=== PATIENT | female | born 1990 | race African-American/Black ===

== ENCOUNTER 2017-01-16 20:57 | Emergency (ER) | payer OTHER ==
[2017-01-16 21:52] LABS: BILIRUBIN NEGATIVE (NEGATIVE); BLOOD NEGATIVE Ery/uL (NEGATIVE); CLARITY CLEAR (CLEAR); COLOR YELLOW (YELLOW); GLUCOSE (U) NORMAL (NORMAL); KETONE (U) TRACE mg/dL (NEGATIVE); LEUKOCYTES 1+ Leu/uL (NEGATIVE); NITRITE NEGATIVE (NEGATIVE); PROTEIN TRACE (LOW) mg/dL (NEGATIVE); SPECIFIC GRAVITY 1.025 (1.001-1.030); pH 6.5 (5.0-9.0)
[2017-01-16 21:52] LABS: BASOPHIL 0.2 % (0-2); EOSINOPHIL 1.3 % (0-5); HCT 27.5 % (37.0-47.0); HGB 9.4 g/dl (12.5-16.0); LYMPHOCYTE 24.6 % (15-48); MCH 30.9 pg (25.0-31.0); MCHC 34.2 g/dL (32.0-36.0); MCV 90.5 fL (78.0-100.0); MONOCYTE 7.1 % (0-12); MPV 9.1 fL (6.0-9.5); NEUTROPHIL 66.8 % (41-80); PLT 319 K/uL (150-400); RBC 3.04 M/uL (4.20-5.40); RDW 12.7 % (11.5-14.0); WBC 9.7 K/uL (4.0-10.5)
[2017-01-16 21:56] LABS: BACTERIA 1+; URINARY RBC RARE
[2017-01-16 22:10] LABS: CREATININE 0.5 mg/dL (0.5-1.0); POTASSIUM 3.7 mmol/L (3.5-5.1)
== END 2017-01-16 23:54 | disposition home or self-care (01) ==
LOC: FER 20:57
PROVIDERS: Emergency Medicine
DX: O21.1 Hyperemesis gravidarum with metabolic disturbance (principal); O99.013 Anemia complicating pregnancy, third trimester; O99.89 Other specified diseases and conditions complicating pregnancy, childbirth and the puerperium; R10.31 Right lower quadrant pain; R82.90 Unspecified abnormal findings in urine; Z79.899 Other long term (current) drug therapy; Z3A.28 28 weeks gestation of pregnancy
CPT/HCPCS: 36415; 80048; 81001; 85025; 87088

== ENCOUNTER 2020-07-27 00:35 | Inpatient (IN) | payer OTHER ==
[~2020-07-27 00:35] MED LIST: ATARAX10 MG/5 ML PO; BACTRIM 200MG/480 ML PO; KEFLEX250 MG/5 M PO
[2020-07-27 02:41] LABS: BILIRUBIN NEGATIVE (NEGATIVE); BLOOD NEGATIVE Ery/uL (NEGATIVE); CLARITY CLEAR (CLEAR); COLOR YELLOW (YELLOW); GLUCOSE (U) NORMAL (NORMAL); LEUKOCYTES NEGATIVE Leu/uL (NEGATIVE); NITRITE NEGATIVE (NEGATIVE); PROTEIN NEGATIVE (NEGATIVE); UROBILINOGEN 0.2 mg/dL (0.2-1.0)
[2020-07-27 03:05] LABS: HCT 27.3 % (37.0-47.0); HGB 8.9 g/dl (12.5-16.0); MCHC 32.6 g/dL (32.0-36.0); MCV 91.9 fL (78.0-100.0); MPV 10.1 fL (6.0-9.5); RBC 2.97 M/uL (4.20-5.40); RDW 12.6 % (11.5-14.0); WBC 11.4 K/uL (4.0-10.5)
[2020-07-28 05:57] LABS: HCT 23.3 % (37.0-47.0); HGB 7.5 g/dl (12.5-16.0); MCH 30.2 pg (25.0-31.0); MCHC 32.2 g/dL (32.0-36.0); MPV 10.2 fL (6.0-9.5); RBC 2.48 M/uL (4.20-5.40); RDW 12.8 % (11.5-14.0); WBC 10.9 K/uL (4.0-10.5)
[2020-07-29] MEDS ORDERED: CHILDREN'S100 MG/52 PO (10:44)
[2020-07-29] MEDS ORDERED: COLACE100 MG PO (10:45)
[2020-07-29] MEDS ORDERED: PRENATAL FORMU1 EACH PO (10:46)
[2020-07-29] MEDS ORDERED: FERROUS SULFAT325 M2 PO (10:53)
== END 2020-07-29 12:20 | disposition home or self-care (01) | DRG 806 ==
LOC: FOB 00:35 → FOD 02:17 → FOB 02:18
PROVIDERS: Obstetrics & Gynecology; ADMIT Obstetrics & Gynecology
PROC: 10E0XZZ Delivery of Products of Conception, External Approach (ICD-10-PCS; principal; 2020-07-27)
PROC: 0UQGXZZ Repair Vagina, External Approach (ICD-10-PCS; 2020-07-27)
PROC: 0W8NXZZ Division of Female Perineum, External Approach (ICD-10-PCS; 2020-07-27)
DX: O99.283 Endocrine, nutritional and metabolic diseases complicating pregnancy, third trimester (principal); D62 Acute posthemorrhagic anemia; Z37.0 Single live birth; O99.820 Streptococcus B carrier state complicating pregnancy; O99.343 Other mental disorders complicating pregnancy, third trimester; O71.4 Obstetric high vaginal laceration alone; F41.9 Anxiety disorder, unspecified; D64.9 Anemia, unspecified; Z3A.39 39 weeks gestation of pregnancy; E55.9 Vitamin D deficiency, unspecified; O99.03 Anemia complicating the puerperium; O99.013 Anemia complicating pregnancy, third trimester; Z20.822 Contact with and (suspected) exposure to COVID-19
CPT/HCPCS: 36415; 81003; J1200; J2540; J2916; J7120; U0002

== ENCOUNTER 2021-06-07 06:04 | Inpatient (IN) | payer OTHER ==
[~2021-06-07] VITALS: Ht 175.3 cm; Wt 92.1 kg
[~2021-06-07 06:04] MED LIST changes: +CHILDREN'S100 MG/52 PO; +COLACE100 MG PO; +FERROUS SULFAT325 M2 PO; +PRENATAL FORMU1 EACH PO
[2021-06-07 06:46] LABS: BILIRUBIN NEGATIVE (NEGATIVE); BLOOD NEGATIVE Ery/uL (NEGATIVE); CLARITY CLEAR (CLEAR); COLOR YELLOW (YELLOW); GLUCOSE (U) NORMAL (NORMAL); LEUKOCYTES 2+ Leu/uL (NEGATIVE); NITRITE NEGATIVE (NEGATIVE); PROTEIN NEGATIVE (NEGATIVE); SPECIFIC GRAVITY 1.025 (1.001-1.030)
[2021-06-07 06:54] LABS: AMPHETAMINES NEGATIVE (NEGATIVE); BARBITURATES NEGATIVE (NEGATIVE); ECSTASY (MDMA) NEGATIVE (NEGATIVE); MARIJUANA (THC) NEGATIVE (NEGATIVE); METHADONE NEGATIVE (NEGATIVE); OPIATES NEGATIVE (NEGATIVE); OXYCODONE NEGATIVE (NEGATIVE)
[2021-06-07 06:58] LABS: BACTERIA 3+
[2021-06-07 07:27] LABS: BASOPHIL 0.3 % (0-2); EOSINOPHIL 0.4 % (0-5); HCT 30.5 % (37.0-47.0); HGB 9.9 g/dl (12.5-16.0); LYMPHOCYTE 15.7 % (15-48); MCH 30.7 pg (25.0-31.0); MCHC 32.5 g/dL (32.0-36.0); MCV 94.4 fL (78.0-100.0); MONOCYTE 6.7 % (0-12); MPV 9.2 fL (6.0-9.5); NEUTROPHIL 76.3 % (41-80); NRBC 0; PLT 299 K/uL (150-400); RBC 3.23 M/uL (4.20-5.40); RDW 13.3 % (11.5-14.0); WBC 9.5 K/uL (4.0-10.5)
[2021-06-07 07:53] LABS: ALBUMIN 2.6 g/dL (3.4-5.0); BILIRUBIN - TOTAL 0.5 mg/dL (0.2-1.0); BUN/CREAT RATIO (CALC) 14.1 RATIO; CREATININE 0.64 mg/dL (0.51-0.95); GLOBULIN (CALCULATION) 4.2 g/dL; TOTAL PROTEIN 6.8 g/dL (6.4-8.2)
[2021-06-08 05:49] LABS: HCT 26.6 % (37.0-47.0); HGB 8.7 g/dl (12.5-16.0); MCH 30.9 pg (25.0-31.0); MCHC 32.7 g/dL (32.0-36.0); MCV 94.3 fL (78.0-100.0); MPV 9.7 fL (6.0-9.5); RBC 2.82 M/uL (4.20-5.40); RDW 13.3 % (11.5-14.0); WBC 11.1 K/uL (4.0-10.5)
[2021-06-09] MEDS ORDERED: COLACE100 MG PO (07:15)
[2021-06-09] MEDS ORDERED: FEOSOL325 MG PO (07:15)
== END 2021-06-09 09:30 | disposition home or self-care (01) | DRG 807 ==
LOC: FOD 06:04 → FOB 06:08
PROVIDERS: ADMIT Specialist
PROC: 10E0XZZ Delivery of Products of Conception, External Approach (ICD-10-PCS; principal; 2021-06-07)
PROC: 0UQMXZZ Repair Vulva, External Approach (ICD-10-PCS; 2021-06-07)
DX: O69.81X0 Labor and delivery complicated by cord around neck, without compression, not applicable or unspecified (principal); Z37.0 Single live birth; Z3A.38 38 weeks gestation of pregnancy; O71.82 Other specified trauma to perineum and vulva; O99.02 Anemia complicating childbirth; Z20.822 Contact with and (suspected) exposure to COVID-19; Z88.6 Allergy status to analgesic agent; O99.344 Other mental disorders complicating childbirth; F41.9 Anxiety disorder, unspecified
CPT/HCPCS: 36415; 80053; 80305; 81001; 85025; J2300; J7120; U0002